=== PATIENT | female | born 2000 | race Caucasian/White ===

== ENCOUNTER → 2024-06-02 15:00 | Outpatient (REF) | payer BC, SELFPAY ==
[2024-06-02 16:36] LABS: Progesterone 7.98 ng/ml
== END ==
LOC: REG 15:00
PROVIDERS: ATTENDING PHYSICIAN Nurse Practitioner Obstetrics & Gynecology; FAMILY PHYSICIAN Family Medicine
DX: O20.9 Hemorrhage in early pregnancy, unspecified (principal)
CPT/HCPCS: 36415; 84144; 84702

== ENCOUNTER → 2024-06-18 14:11 | Outpatient (REF) | payer BC, SELFPAY | LOC: HWRAD 14:11 | PROVIDERS: ATTENDING PHYSICIAN Obstetrics & Gynecology; FAMILY PHYSICIAN Family Medicine | DX: O20.0 Threatened abortion (principal) | CPT/HCPCS: 76801 ==

== ENCOUNTER → 2024-06-29 13:14 | Outpatient (REF) | payer BC, SELFPAY ==
[2024-06-29 14:48] LABS: ALT (SGPT) 28 U/L (0-35); AST (SGOT) 24 U/L (14-36); Albumin 4.8 g/dl (3.5-5.0); Alkaline Phosphatase 39 U/L (38-126); Blood Urea Nitrogen 7 mg/dl (7-17); Calcium 9.8 mg/dl (8.4-10.2); Carbon Dioxide 22 mmol/L (22-30); Chloride 103 mmol/L (98-107); Glucose 67 mg/dl (70-99); Potassium 3.8 mmol/L (3.5-5.1); Sodium 140 mmol/L (135-145); Total Bilirubin 0.9 mg/dl (0.2-1.3); Total Protein 7.2 g/dl (6.3-8.2); eGFR > 60.00
[2024-06-29 15:05] LABS: Free T4 1.19 ng/dl (0.78-2.19); Prolactin 100.6 ng/ml (3.0-18.6)
[2024-06-29 15:19] LABS: TSH 1.06 uIU/ml (0.47-4.68)
== END ==
LOC: REG 13:14
PROVIDERS: ATTENDING PHYSICIAN Internal Medicine Endocrinology, Diabetes & Metabolism; FAMILY PHYSICIAN Family Medicine
DX: D35.2 Benign neoplasm of pituitary gland (principal)
CPT/HCPCS: 36415; 80053; 84146; 84439; 84443

== ENCOUNTER → 2024-07-10 11:18 | Outpatient (REF) | payer BC, SELFPAY ==
[2024-07-10 12:41] LABS: % Basophils 0.4 % (0-2); % Eosinophils 1.5 % (0-6); % Immature Granulocytes 0.2 % (0-0.5); % Lymphocytes 16.9 % (20.5-51.1); % Monocytes 7.4 % (1.7-9.3); % Neutrophils 73.6 % (42.2-75.2); Absolute Eosinophils 0.1 10^3/uL (0-0.7); Absolute Lymphocytes 1.6 10^3/uL (1.2-3.4); Absolute Monocytes 0.7 10^3/uL (0.1-0.6); Absolute Neutrophils 6.8 10^3/uL (1.4-6.5); Hematocrit 37.5 % (37.0-47.0); Hemoglobin 13.1 g/dL (12.0-16.0); Mean Corp Hgb Conc. 34.9 g/dL (33.0-37.0); Mean Corpuscular Hgb 29.1 pg (27.0-31.0); Mean Corpuscular Volume 83.3 fL (81.0-99.0); Mean Platelet Volume 8.5 fL (7.4-10.4); Nucleated Red Blood Cells % 0 %; Platelet Count 331 10^3/uL (130-400); Red Cell Dist. Width 12.3 % (11.5-14.5); White Blood Cell Count 9.2 10^3/uL (4.8-10.8)
[2024-07-10 13:37] LABS: HIV Combo Negative (Negative)
[2024-07-10 14:25] LABS: Glycohemoglobin (HgbA1c) 5.1 % (4.0-5.6)
[2024-07-11 20:43] LABS: Capillary Hgb Electrophoresis Not Performed; Sickle Cell Solubility Reflex Not Performed
[2024-07-12 02:35] LABS: Hepatitis B Surface Antigen Negative (Negative)
[2024-07-12 02:53] LABS: Hepatitis B Core Ab, Total Negative (Negative); Hepatitis B Surface Antibody Negative
[2024-07-12 03:51] LABS: Hepatitis C Antibody Negative (Negative)
[2024-07-12 15:46] LABS: Varicella Zoster IgG (VZV) Positive
[2024-07-12 18:26] LABS: Rubella Positive
== END ==
LOC: REG 11:18
PROVIDERS: ATTENDING PHYSICIAN Nurse Practitioner Obstetrics & Gynecology; FAMILY PHYSICIAN Family Medicine
DX: Z36.89 Encounter for other specified antenatal screening (principal)
CPT/HCPCS: 36415; 83021; 83036; 85025; 86704; 86706; 86762; 86780; 86787; 86803; 86850; 86900; 86901; 87340; 87389

== ENCOUNTER → 2024-11-11 09:40 | Outpatient (REF) | payer BC, SELFPAY ==
[2024-11-11 12:08] LABS: % Basophils 0.5 % (0-2); % Eosinophils 1.1 % (0-6); % Lymphocytes 14.6 % (20.5-51.1); % Monocytes 4.4 % (1.7-9.3); % Neutrophils 78.4 % (42.2-75.2); Absolute Eosinophils 0.1 10^3/uL (0-0.7); Absolute Immature Granulocytes 0.1 10^3/uL (0-0.05); Absolute Lymphocytes 1.2 10^3/uL (1.2-3.4); Absolute Monocytes 0.4 10^3/uL (0.1-0.6); Absolute Neutrophils 6.4 10^3/uL (1.4-6.5); Hematocrit 34.4 % (37.0-47.0); Hemoglobin 11.3 g/dL (12.0-16.0); Mean Corp Hgb Conc. 32.8 g/dL (33.0-37.0); Mean Corpuscular Hgb 30.1 pg (27.0-31.0); Mean Corpuscular Volume 91.5 fL (81.0-99.0); Mean Platelet Volume 9.1 fL (7.4-10.4); Nucleated Red Blood Cells % 0 %; Platelet Count 241 10^3/uL (130-400); Red Blood Cell Count 3.76 10^6/uL (4.20-5.40); Red Cell Dist. Width 13.6 % (11.5-14.5); White Blood Cell Count 8.2 10^3/uL (4.8-10.8)
[2024-11-11 13:29] LABS: 1 Hour after 50gm 135 mg/dl
[2024-11-12 10:56] LABS: Syphilis/T. pallidum Ab Reflex Negative (Negative)
== END ==
LOC: REG 09:40
PROVIDERS: ATTENDING PHYSICIAN Obstetrics & Gynecology; FAMILY PHYSICIAN Family Medicine
DX: Z36.89 Encounter for other specified antenatal screening (principal)
CPT/HCPCS: 36415; 82950; 85025; 86780